=== PATIENT | male | born 1945 | race Caucasian/White ===

== ENCOUNTER 2017-11-28 10:45 | Emergency (ER) | payer MEDICARE, OTHER ==
[2017-11-28] MEDS ORDERED: NS 0.9% 1000 ML* 1,000 ML IV ONE (10:52)
[2017-11-28 11:19] LABS: ABS Basophils 0.1 10^3/ul (0-0.2); ABS Eosinophils 0.1 10^3/ul (0-0.6); ABS Lymphocytes 0.9 10^3/ul (1.0-4.8); ABS Monocytes 0.5 10^3/ul (0-0.8); ABS Neutrophils 6.7 10^3/ul (1.5-7.7); ABS Nucleated RBC 0 10^3/ul; Eosinophil % 1.3 % (0-6); Hematocrit 38 % (42-52); Hemoglobin 13.2 g/dl (14.0-18.0); Lymphocyte % 10.7 % (25-47); Mean Corpuscular HGB Conc 35 g/dl (31-36); Mean Corpuscular Hemoglobin 33 pg (27-31); Mean Corpuscular Volume 96 fL (80-94); Mean Platelet Volume 7.7 um3 (7.4-10.4); Nucleated Red Blood Cells % 0.1; Platelet Count 195 10^3/ul (150-450); Red Blood Count 3.95 10^6/ul (4.00-5.40); Red Cell Distribution Width 13 % (10.5-15); White Blood Count 8.3 10^3/ul (3.5-10.8)
[2017-11-28] MEDS ORDERED: Magnesium Oxide TAB* 400 MG PO ONE (12:31)
[2017-11-28 12:54] VITALS: BP 133/91
--- NOTE | 2017-12-01 10:46 | ED ---
Bryce Beck Angela, scribed for Leo Delgado MD on 11/28/17 at 1108 . GI/ HPI - HPI Summary HPI Summary: This pt is a 72 y/o male presenting [place] [facility] [place]/o intermittent bloody stools since yesterday. Pt reports he had a GI bleed yesterday morning, a small amount of mayo red blood with a bowel movement. After this episode yesterday he had 3 normal bowel movements with normal color and nonbloody. Pt saw his PCP yesterday afternoon and was referred to GI (Dr. Enriquez) in [place]. He then went home had dinner and from 20:00 yesterday to 01:00 today he had a series of 9 GI bleeds described as bowel movements with large amounts of bright red blood. This morning he had one bowel movement described as black with some blood. A second bowel movement today was black but was nonbloody. Denies any pain, abd pain, rectal pain. Pt notes he has intense lower abd pain across his abd last week that spontaneously resolved. Denies taking any anticoagulants. Denies frequent use of ibuprofen. His last colonoscopy was within the past 9 months, which was normal. Pt has had upper and lower endoscopies as well as a CT scan done by Dr. Enriquez for persistent RLQ discomfort over the past 2 years. All resulted negative. Pt reports he had a GI bleed 2-3 years ago where he was taking NSAIDs but this GI bleed cleared within 1 day. - History of Current Complaint Chief Complaint: EDGIBleed Time Seen by Provider: 11/28/17 10:53 Stated Complaint: BLOODY STOOL Hx Obtained From: Patient Onset/Duration: Started Days Ago - 1, Still Present Timing: Lasting Days - 1 Current Severity: None Pain Intensity: 0 - denies any pain Associated Signs and Symptoms: Positive: Bright Red Blood w/Stool, Blood w/Stool , Melena. Negative: Nausea, Vomiting, Rectal Pain, Fever, Chills, Abdominal Pain, Chest Pain Aggravating Factor(s): Nothing Alleviating Factor(s): Nothing - Allergy/Home Medications Allergies/Adverse Reactions: Allergies Allergy/AdvReac Type Severity Reaction Status Date / Time meperidine [From Demerol] Allergy Nausea Verified 11/28/17 10:47 Home Medications: Home Medications Acetaminophen [Tylenol Arthritis] 1,300 mg PO DAILY PRN 11/28/17 [History Confirmed 11/28/17] Atenolol TAB* [Tenormin TAB* 25 MG] 25 mg PO QPM 11/28/17 [History Confirmed 06/05] Atorvastatin* [Lipitor*] 20 mg PO QPM 11/28/17 [History Confirmed 11/28/17] Ibuprofen TAB* [Advil TAB*] 200 - 400 mg PO Q6H PRN 11/28/17 [History Confirmed 11/28/17] L.acidoph,Paracasei, B.lactis [Probiotic] 1 cap PO QPM 11/28/17 [History Confirmed 11/28/17] Losartan/HCTZ 100/25 (NF) [Hyzaar 100/25 (NF)] 1 tab PO QPM 11/28/17 [History Confirmed 11/28/17] Multivitamins/Minerals TAB* [Theragran/minerals TAB*] 1 tab PO QPM 11/28/17 [ History Confirmed 11/28/17] Tadalafil (Nf) [Cialis (NF)] 5 - 10 mg PO QPM PRN 11/28/17 [History Confirmed ] PMH/Surg Hx/FS Hx/Imm Hx Endocrine/Hematology History: Denies: Hx Diabetes Cardiovascular History: Reports: Hx Hypertension - controlled with meds - Surgical History Surgery Procedure, Year, and Place: none on Abdomen Infectious Disease History: No Infectious Disease History: Denies: Traveled Outside the [place] in Last 30 Days - Family History Known Family History: Negative: Cardiac Disease - Social History Alcohol Use: Occasionally Substance Use Type: Reports: None Smoking Status (MU): Never Smoked Tobacco Review of Systems Negative: Fever, Chills Eyes: Negative Negative: Chest Pain Gastrointestinal: Other - bloody stools, melena Negative: Abdominal Pain, Vomiting, Nausea Negative: other - rectal pain Skin: Negative Neurological: Negative All Other Systems Reviewed And Are Negative: Yes Physical Exam - Summary Physical Exam Summary: VITAL SIGNS: Reviewed. GENERAL: Patient is a well-developed and nourished male who is lying comfortable in the stretcher. Patient is not in any acute respiratory distress. HEAD AND FACE: No signs of trauma. No ecchymosis, hematomas or skull depressions. No sinus tenderness. EYES: PERRLA, EOMI x 2, No injected conjunctiva, no nystagmus. EARS: Hearing grossly intact. Ear canals and tympanic membranes are within normal limits. MOUTH: Oropharynx within normal limits. NECK: Supple, trachea is midline, no adenopathy, no JVD, no carotid bruit, no c- spine tenderness, neck with full ROM. CHEST: Symmetric, no tenderness at palpation LUNGS: Clear to auscultation bilaterally. No wheezing or crackles. CVS: Regular rate and rhythm, S1 and S2 present, no murmurs or gallops appreciated. ABDOMEN: Soft, non-tender. No signs of distention. No rebound no guarding, and no masses palpated. Bowel sounds are normal. RECTAL EXAM: Normal sphincter tone. No hemorrhoids. No gross blood. No black stools. EXTREMITIES: FROM in all major joints, no edema, no cyanosis or clubbing. NEURO: Alert and oriented x 3. No acute neurological deficits. Speech is normal and follows commands. SKIN: Dry and warm Triage Information Reviewed: Yes Vital Signs On Initial Exam: Initial Vitals Temp Pulse Resp BP Pulse Ox 97.9 F 77 16 130/83 98 11/28/17 10:47 11/28/17 10:47 11/28/17 10:47 11/28/17 10:47 11/28/17 10:47 Vital Signs Reviewed: Yes Diagnostics - Vital Signs Vital Signs Temp Pulse Resp BP Pulse Ox 11/28/17 10:47 97.9 F 77 16 130/83 98 - Laboratory Result Diagrams: 11/28/17 11:10 11/28/17 11:10 Lab Statement: Any lab studies that have been ordered have been reviewed, and results considered in the medical decision making process. - EKG 10:52 Cardiac Rate: NL - at 68 bpm EKG Rhythm: Sinus Rhythm EKG Interpretation: No ST elevations. Normal axis. Re-Evaluation - Re-Evaluation First Eval Re-Evaluation Time: 12:50 Comment: I reviewed the lab results with pt. He will be discharged home with follow up from Dr. Enriquez. [facility] Course/Dx - Course Assessment/Plan: Pt is a 72 y/o male who presents with intermittent bloody stools since yesterday. Pt reports he had a GI bleed yesterday morning, a small amount of mayo red blood with a bowel movement. After this episode yesterday he had 3 normal bowel movements with normal color and nonbloody. He then went home had dinner and from 20:00 yesterday to 01:00 today he had a series of 9 GI bleeds described as bowel movements with large amounts of bright red blood. This morning he had one bowel movement described as black with some blood. A second bowel movement today was black but was nonbloody. Denies any pain, abd pain, rectal pain. Test results show a slight normocytic normochromic anemia, glucose of 106, BUN and creatinine are within normal limits, occult blood is positive for blood. At this point I discussed the case with Dr. Graf, from GI, since the pt is hemodynamically stable and H & H is stable, he recommends to speak with Dr. Enriquez (the pts GI doctor) for further assessment and work up. Therefore I discussed pt care with Dr. Enriquez, who is comfortable for the pt to be discharged home and follow up with her tomorrow in her office. I discussed all the findings and test results with the patient. All questions were answered to patient satisfaction. I gave the pt instructions to return to the ED for any increase in rectal bleed, increase in frequency or amount of bleeding, and any other worsening symptoms. He understands and agrees. Pt is hemodynamically stable, alert and oriented x3. - Diagnoses Provider Diagnoses: GI bleed - Physician Notifications Discussed Care Of Patient With: Anthony Graf Time Discussed With Above Provider: 12:02 Instructed by Provider To: Other - I discussed pt care with Dr. Graf, GI, who recommends to consult with pt's audio/visual manager Dr. Enriquez at [place]. [12: 14] I spoke with nurse Franco, from Dr. Enriquez's office, who reports Dr. Enriquez is with a pt and will call back as soon as she is done. [12:28] After reviewing labs with Dr. Enriquez, she recommends for the pt to be discharged home with follow up from her tomorrow morning. Discharge - Sign-Out/Discharge Documenting (check all that apply): Discharge/Admit/Transfer - Discharge - Discharge Plan Condition: Stable Disposition: HOME Patient Education Materials: Gastrointestinal Bleeding (ED) Referrals: Santana Quinn MD [Primary Care Provider] - Antonette Enriquez MD [Medical Doctor] - 1 Day (TOMORROW) Additional Instructions: Please follow up with Dr. Enriquez, audio/visual manager, tomorrow morning. RETURN TO THE ED FOR ANY NEW OR WORSENING SYMPTOMS. The documentation as recorded by the Bryce khan Angela accurately reflects the service I personally performed and the decisions made by me, Leo Delgado MD.
== END 2017-11-28 12:53 | disposition home or self-care (01) ==
LOC: ED 10:45
DX: K92.2 Gastrointestinal hemorrhage, unspecified (principal); I10 Essential (primary) hypertension; Z88.5 Allergy status to narcotic agent
CPT/HCPCS: 36415; 80053; 82272; 83605; 83690; 83735; 85025; 86140; 93005; 96360; 99283